=== PATIENT | female | born 1995 | race Caucasian/White ===

== ENCOUNTER 2020-09-05 09:25 | Outpatient (CLI) | payer BC, SELFPAY ==
[2020-09-05 10:12] LABS: Hematocrit 36.8 % (37.0-47.0); Hemoglobin 12.8 g/dL (12.0-15.0); Mean Corpuscular HGB Conc 34.8 g/dl (32-36); Mean Corpuscular Hemoglobin 31.5 pg (26-34); Mean Corpuscular Volume 90.6 fl (80-100); Mean Platelet Volume 10.6 fl (7.4-10.4); Platelet Count Result 336 k/mm3 (150-375); Red Blood Count 4.06 M/mm3 (4.2-5.4); Red Cell Distribution Width 11.9 % (11.5-14.5); White Blood Count 8.6 K/mm3 (4.5-10.0)
[2020-09-05 10:27] LABS: Alanine Aminotransferase 12 U/L (4-35); Albumin Level 4.3 g/dL (3.5-5.1); Alkaline Phosphatase 47 U/L (38-126); Anion Gap 10 mmol/L (8-16); Aspartate Amino Transferase 22 U/L (14-36); Bilirubin,Total 0.5 mg/dL (0.2-1.3); Blood Urea Nitrogen 8 mg/dL (7-17); Calcium 9.3 mg/dL (8.4-10.2); Carbon Dioxide 25 mmol/L (22-30); Chloride 104 mmol/L (98-107); Estimated Glomerular Filt Rate > 60; Glucose 82 mg/dL (65-105); Potassium 3.4 mmol/L (3.4-5.0); Sodium 139 mmol/L (137-145)
[2020-09-12 00:47] LABS: Calprotectin, Stool 6 mcg/g
== END 2020-09-05 09:26 | disposition home or self-care (01) ==
LOC: ANHLAB 09:34
PROVIDERS: PCP Physician Assistant
DX: K52.9 Noninfective gastroenteritis and colitis, unspecified (principal); R10.33 Periumbilical pain; R11.0 Nausea; R19.4 Change in bowel habit
CPT/HCPCS: 36415; 80053; 83993; 85027

== ENCOUNTER 2025-02-16 02:02 | Day surgery (SDC) | payer OTHER, SELFPAY ==
[2025-01-31 11:36] VITALS: BMI 22.6
[2025-02-16 11:38] VITALS: BP 133/72; PULSE 92; RESP 18; O2SAT 100
[2025-02-16 11:40] LABS: BEDSIDEPREGUCG Negative (Negative)
[2025-02-16] MEDS: LACTATED RINGERS 1,000 ML 150 ML IV CONT (11:49)
--- NOTE | 2025-02-16 12:27 | WPDANESEPPF ---
Anes - Initial Pre Proc Eval Procedure: Operation Date: 02/16/25 13:00 Proposed Procedures p Esophagogastroduodenoscopy - Valentin Sauer MD Date/Time: 02/16/25 12:27 Surgeon: Valentin Sauer MD Pre Op Diagnosis: Gastroparesis Patient Data Age: 29 Gender: F Height: 1.57 m Weight: 56.4 kg Last Vital Signs Pulse 92 02/16/25 11:38 Resp 18 02/16/25 11:38 BP 133/72 02/16/25 11:38 Pulse Ox 100 02/16/25 11:38 O2 Del Method Room Air 02/16/25 11:38 Allergies Allergy/AdvReac Type Severity Reaction Status Date / Time hydrocodone (From Vicodin) AdvReac Severe Hives Verified 02/16/25 11:32 Home Medications ?Medication ?Instructions ?Recorded ?Confirmed ?Type ondansetron 4 mg disintegrating 4 mg PO DAILY PRN nausea and 11/24/23 01/31/25 History tablet vomiting norethindrone-eth. estradiol-iron See Rx Instructions .Route 11/29/24 02/16/25 Rx 1-20 (5)/1-30(7)/1mg-35mcg(9) .COMPLEX #84 tabs tablet (Tilia Fe) metoclopramide HCl 5 mg tablet See Rx Instructions .Route 01/22/25 01/31/25 Rx .COMPLEX #120 tabs Laboratory Tests 02/16/25 11:38 POC Urine HCG, Qual Negative (Negative) Patient hx anesthesia problems: none Family hx anesthesia problems: none Results Review: All pre-operative results and documents have been reviewed as part of the pre-operative evaluation. REPLACED BY [facility] Past Medical History Medical History Regional ileitis of small intestine cTE and capsule normal per Dr. Funk. Had f/u colon in 2022 was normal. Chronic idiopathic constipation Gastroparalysis Anxiety Surgical History Surgical History H/O colonoscopy Social History Social History Smoking status: Never smoker Alcohol intake: former Alcohol use details: occasional Substance use: never Substance use type: does not use Lack of Transportation: No Lack of Food: Never True Current Housing: I Have Housing Concerned About Future Housing: No Difficulty Paying Gas/Electric Bills: No Difficulty Paying for Meds: No Currently Unemployed: No Education: Master's Degree or Higher Difficulty w/ Childcare or Family Care: No Living arrangements: with family Occupation/Education: occupation Gender identity (if verbalized by the patient): Female Sexual Orientation (if Verbalized by the Patient): Straight or Heterosexual Anes - Eval Final PreProcedure Day of Procedure 02/16/25 12:27 Patient weight: normal and thin Lungs: normal air movement Airway: Mallampati scale class II Neurological: alert and oriented Last oral intake: >/= 8 hours ASA classification: I Emergent: no Anesthetic plan: proceed Anesthesia type and monitoring: general GIVS and standard monitoring Results Review: All pre-operative results and documents have been reviewed as part of the pre-operative evaluation. Healthy, gastroparesis by pt report on swallow study, pt had half cheeseburger 18 hrs ago. Informed Consent: The patient's anesthetic plan and its attendant risks and benefits were discussed with the patient/family/POA. Questions were solicited and answers provided to the satisfaction of the patient/family/POA.
--- NOTE | 2025-02-16 12:50 | P.HP_ITS ---
History of Present Illness History of Present Illness Consent: Risks, benefits, and alternatives have been discussed and questions answered. Patient agrees to proceed with procedure. Chief complaint: Gastroparesis Narrative: Gisella Schofield is a 29 year old female here for egd because nausea and gastroparesis, doing better with medication Review of Systems Review of Systems: All systems reviewed & are unremarkable except as noted in HPI and below PMFSH Past Medical History Medical History (Updated 02/16/25 @ 12:52 by Valentin Sauer MD) Nausea & vomiting Regional ileitis of small intestine cTE and capsule normal per Dr. Funk. Had f/u colon in 2022 was normal. Chronic idiopathic constipation Gastroparalysis Anxiety Surgical History Surgical History H/O colonoscopy Social History Social History Smoking status: Never smoker Alcohol intake: former Alcohol use details: occasional Substance use: never Substance use type: does not use Lack of Transportation: No Lack of Food: Never True Current Housing: I Have Housing Concerned About Future Housing: No Difficulty Paying Gas/Electric Bills: No Difficulty Paying for Meds: No Currently Unemployed: No Education: Master's Degree or Higher Difficulty w/ Childcare or Family Care: No Living arrangements: with family Occupation/Education: occupation Gender identity (if verbalized by the patient): Female Sexual Orientation (if Verbalized by the Patient): Straight or Heterosexual Meds Home Medications and Allergies Home Medications ?Medication ?Instructions ?Recorded ?Confirmed ?Type ondansetron 4 mg disintegrating 4 mg PO DAILY PRN naus ea and 11/24/23 01/31/25 History tablet vomiting norethindrone-eth. estradiol-iron See Rx Instructions .Route 11/29/24 02/16/25 Rx 1-20 (5)/1-30(7)/1mg-35mcg(9) .COMPLEX #84 tabs tablet (Tilia Fe) metoclopramide HCl 5 mg tablet See Rx Instructions .Ro sharonda 01/22/25 01/31/25 Rx .COMPLEX #120 tabs Allergies Allergy/AdvReac Type Severity Reaction Status Date / Time hydrocodone (From Vicodin) AdvReac Severe Hives Verified 12/19/25 11:32 Vital Signs Vital Signs - 24 hr 02/16/25 11:38 Pulse Rate 92 Respiratory Rate 18 Blood Pressure 133/72 Pulse Oximetry 100 Oxygen Delivery Room Air Exam Const: General: comfortable and no acute distress HENMT: Face/Nose/Sinus: Normal nares present Eyes: General: appearance normal, both eyes and all related structures Neck: Neck: no JVD Resp: Auscultation: clear to auscultation bilaterally Cardio: Rate: regular rate Rhythm: regular rhythm GI: Inspection: non-distended GI Palp: Yes Soft to palpation Skin: General skin exam: normal color Extrem: General: normal to inspection Psych: Mental Status: mental status grossly normal Assessment and Plan Assessment and plan (1) Nausea & vomiting: Code(s): R11.2 - Nausea with vomiting, unspecified Status: Acute Assessment and Plan: egd with bx (2) Gastroparalysis: Code(s): K31.84 - Gastroparesis Status: Acute
--- NOTE | 2025-02-16 12:59 | S_PTH ---
PATIENT: Gisella Schofield LOC: [facility]#:[id number] AGE/SX: 29/F ROOM: RE02/16/[address]: Valentin Sauer MD : 1995 BED: DIS: 02/16/2025 SPEC #: [id number] RECD: 02/16/25 13:37 STATUS: MONICA RECornel #: [id number] VALERIA: 02/16/25 12:[address]: Valentin Sauer DEPT: [facility] Surgical RECD BY: Lisa Devine ENTERED: 02/16/25 13:38 SP TYPE: Surgical OTHR DR: Edwar MeekMD Tissues: A - Small Bowel Bx B - Gastric Biopsy C - Esophageal Biopsy Procedures: Hematoxylin and Eosin Stain Gross and Microscopic Level 4
[2025-02-16 13:00] VITALS: BP 105/72; PULSE 105; RESP 18; O2SAT 100
[2025-02-16 13:10] VITALS: BP 111/71; PULSE 89; RESP 18; O2SAT 100
[2025-02-16 13:20] VITALS: BP 117/78; PULSE 68; RESP 18; O2SAT 100
== END 2025-02-16 13:35 | disposition home or self-care (01) ==
PROVIDERS: Anesthesiology; PCP Internal Medicine; Referring Provider Nurse Practitioner; Visit Provider Internal Medicine Gastroenterology
PROC: 0DJ08ZZ Inspection of Upper Intestinal Tract, Via Natural or Artificial Opening Endoscopic (ICD-10-PCS; CPT 43239; principal; 2025-02-16 13:00)
DX: K31.84 Gastroparesis (principal); K59.04 Chronic idiopathic constipation; F41.9 Anxiety disorder, unspecified
CPT/HCPCS: 43239; 88305; J2003; J2704; J7120